=== PATIENT | female | born 1980 | race Caucasian/White ===

== ENCOUNTER 2017-06-26 06:12 | Emergency (ER) | payer OTHER ==
[2017-06-26 07:37] LABS: BASO % 0.6 % (0.0-2.0); EOS # 0.2 K/uL (0.0-0.7); HEMOGLOBIN 11.7 g/dL (11.0-16.0); LYMPH # 2.7 K/uL (1.0-4.3); LYMPH % 35.5 % (20.0-40.0); MEAN CELL VOLUME 84.3 fL (81.0-99.0); MEAN CORPUSCULAR HEMOGLOBIN 29.7 pg (27.0-31.0); MEAN CORPUSCULAR HGB CONC 35.2 g/dL (33.0-37.0); MEAN PLATELET VOLUME 9.7 fL (7.2-11.7); MONO # 0.4 K/uL (0.0-0.8); MONO % 5.1 % (0.0-10.0); NEUT # 4.3 K/uL (1.8-7.0); NEUT % 56.8 % (50.0-75.0); RBC 3.95 Mil/uL (3.80-5.20); RED CELL DISTRIBUTION WIDTH 13.5 % (11.5-14.5); WHITE BLOOD COUNT 7.5 K/uL (4.8-10.8)
[2017-06-26 07:41] LABS: HCG,QUALITATIVE URINE NEGATIVE (NEGATIVE)
[2017-06-26 08:03] LABS: SQUAMOUS EPITHIAL 1 /hpf (0-5); URINE BILIRUBIN NEGATIVE (NEGATIVE); URINE BLOOD 1+ (NEGATIVE); URINE CLARITY Clear (Clear); URINE COLOR Straw (YELLOW); URINE GLUCOSE (UA) NORMAL (Normal); URINE LEUKOCYTE ESTERASE NEG Leu/uL (Negative); URINE NITRATE NEGATIVE (NEGATIVE); URINE PROTEIN NEGATIVE (NEGATIVE); URINE UROBILINOGEN NORMAL mg/dL (0.2-1.0)
[2017-06-26 08:09] LABS: URINE BACTERIA RARE (<OCC)
[2017-06-26 08:12] LABS: GFR AFRICAN-AMERICAN > 60; GFR NON-AFRICAN AMERICAN > 60
[2017-06-26 08:15] LABS: ALBUMIN 3.9 g/dL (3.5-5.0); ALT/SGPT 29 U/L (9-52); AST/SGOT 63 U/L (14-36); BLOOD UREA NITROGEN 15 mg/dL (7-17)
[2017-06-26 08:21] LABS: CK-MB 0.31 ng/mL (0.0-3.38)
[2017-06-26] MEDS ORDERED: Sodium Chloride 0.9% 1,000 ML IV ONE (08:22)
--- NOTE | 2017-06-26 08:24 | RAD ---
HISTORY: SOB COMPARISON: No prior. TECHNIQUE: Chest PA and lateral FINDINGS: LUNGS: No active pulmonary disease. PLEURA: No significant pleural effusion identified. No pneumothorax apparent. CARDIOVASCULAR: Normal. OSSEOUS STRUCTURES: No significant abnormalities. VISUALIZED UPPER ABDOMEN: Normal. OTHER FINDINGS: None. IMPRESSION: No active disease.
[2017-06-26 09:21] LABS: B-TYPE NATRIURETIC PEPTIDE 50.8 pg/mL (0-450)
[2017-06-26 09:34] VITALS: BP 131/79; PULSE 67; RESP 16; TEMP 98.6; O2SAT 100
--- NOTE | 2017-06-26 09:35 | C.PDOC ---
History Of Present Illness Patient is a 36 year old female presents to ED for evaluation of headache associated with neck and upper back swelling for the last 3 days. (+) generalized weakness (+)chest pain. Denies shortness of breath, difficulty breathing, difficulty swallowing, or fever. Pt reports having similar episodes last year, was evaluated at [place] [facility] but has not followed up since then. Denies blurred vision, photophia, nausea, vomiting, dizziness, or change in sensation. Time Seen by Provider: 06/26/17 07:03 Chief Complaint (Nursing): Chest Pain History Per: Patient, Complaint Adjuster (data recovery planner used) History/Exam Limitations: language barrier (translated by nurse Anaya) Onset/Duration Of Symptoms: Days Current Symptoms Are (Timing): Still Present Quality: "Pain" Preceeding Symptoms: denies: Visual Disturbances, Known Migraine Symptoms Associated Symptoms: denies: Photophobia, Blurred Vision, Nausea, Vomiting, Extremity Weakness Recent travel outside of the [place]: No Additional History Per: Patient Past Medical History Reviewed: Historical Data, Nursing Documentation, Vital Signs Vital Signs: Last Vital Signs Temp 98.6 F 06/26/17 09:17 Pulse 67 06/26/17 09:17 Resp 16 06/26/17 09:17 BP 131/79 06/26/17 09:17 Pulse Ox 100 06/26/17 09:45 Family History: States: Unknown Family Hx - Social History Hx Alcohol Use: No Hx Substance Use: No Review Of Systems Except As Marked, All Systems Reviewed And Found Negative. Constitutional: Positive for: Weakness. Negative for: Fever, Chills Eyes: Negative for: Vision Change ENT: Negative for: Throat Pain, Throat Swelling Cardiovascular: Positive for: Chest Pain. Negative for: Palpitations, Light Headedness Respiratory: Negative for: Cough, Shortness of Breath Gastrointestinal: Negative for: Nausea, Vomiting, Abdominal Pain, Diarrhea Genitourinary: Negative for: Dysuria, Frequency, Hematuria Musculoskeletal: Positive for: Neck Pain (neck/upper back swelling) Skin: Negative for: Rash, Bruising Neurological: Positive for: Headache. Negative for: Weakness, Numbness, Dizziness Physical Exam - Physical Exam Appears: Non-toxic, No Acute Distress Skin: Normal Color, Warm, Dry Head: Atraumatic, Normacephalic Eye(s): bilateral: Normal Inspection, EOMI Nose: Normal Oral Mucosa: Moist Neck: Normal ROM, Supple Chest: Symmetrical Cardiovascular: Rhythm Regular Respiratory: Normal Breath Sounds, No Rales, No Rhonchi, No Wheezing Gastrointestinal/Abdominal: Soft, No Tenderness, Other (centralized obesity) Back: No Vertebral Tenderness, No Paraspinal Tenderness, Other (bilateral fatty deposits to neck/ upper back just above the clavicles) Extremity: Normal ROM, No Pedal Edema Extremity: Bilateral: Atraumatic Neurological/Psych: Oriented x3, Normal Speech, Normal Cognition, Normal Cranial Nerves (2-12 grossly intact, no focal deficts) ED Course And Treatment - Laboratory Results Result Diagrams: 06/26/17 07:33 06/26/17 07:33 ECG: Interpreted By Me, Viewed By Me ECG Rhythm: Sinus Rhythm Rate From EC O2 Sat by Pulse Oximetry: 100 (RA) Pulse Ox Interpretation: Normal Progress Note: Prior records reviewed. EKG, CXR, blood work, UA ordered and reviewed. Pt was given Toradol, and IV fluids. On re-eval, pt states headache resolved. No chest pain, no sob, no fever. No difficulty breathing or swallowing. REviewed previous record for same symtpoms with normal CT chest. PT was instructed to go to the clinic right after discharge. Discussed possible differentials for symtpoms including but not limited to cortisol hormone imbalance therefore strict follow up was instructed. Disposition - Disposition Referrals: [facility] [Outside] Disposition: HOME/ ROUTINE Disposition Time: 09:30 Condition: STABLE Additional Instructions: Vaya a whaley mdico o la clnica en 1-3 sprague sin falta, para mas evaluacin. Volver a la parul de emergencia en cualquier momento si los sntomas persisten o empeoran. Instructions: Acute Headache (ED) Forms: [employer] (Arabic) Print Language: SWISS - Clinical Impression Clinical Impression: Headache, Soft tissue swelling of back - PA / ADMINISTRATIVE SUPPORT ASSISTANT / Resident Statement MD/DO has reviewed & agrees with the documentation as recorded. - Scribe Statement The provider has reviewed the documentation as recorded by the Sandoribe Malick Donis All medical record entries made by the Scribe were at my direction and personally dictated by me. I have reviewed the chart and agree that the record accurately reflects my personal performance of the history, physical exam, medical decision making, and the department course for this patient. I have also personally directed, reviewed, and agree with the discharge instructions and disposition.
--- NOTE | 2017-06-30 19:54 | CARD ---
APPROVED REPORT EKG Measurement Heart [id number] <Conclusion> Normal sinus rhythm Normal ECG
== END 2017-06-26 09:33 | disposition home or self-care (01) ==
LOC: C.ER 06:12
DX: R51 Headache (principal); R22.2 Localized swelling, mass and lump, trunk
CPT/HCPCS: 71020; 80053; 81001; 82550; 82553; 83880; 84439; 84443; 84481; 84484; 84703; 85025; 85378; 93005; 96361; 96374; 99285; J1885; J7040